=== PATIENT | male | born 1985 | race Caucasian/White ===

== ENCOUNTER 2019-01-21 08:35 | Outpatient (CLI) | payer MEDICARE, OTHER ==
--- NOTE | 2019-01-21 09:45 | RAD ---
LUMBOSACRAL SPINE THREE VIEWS: HISTORY: Right leg numbness for two years and lumbar radiculopathy. FINDINGS: Lateral views of the lumbosacral spine were performed in neutral, flexion, and extension. The verteb ral bodies and intervertebral disks demonstrate normal height and alignment without fracture or sublu xation. Alignment is unchanged with flexion and extension. No degenerative changes are seen. IMPRESSION: Unremarkable examination. POS: [facility]
--- NOTE | 2019-01-21 10:54 | MRI ---
LUMBAR SPINE MRI NONCONTRAST: Date: 01/21/19 INDICATION: Lumbar radiculopathy. Reference made to radiographs, same date. FINDINGS: No acute marrow edema. Degenerative T2 signal loss is present at L4-5 and L5-S1 intervertebral discs with associated posterior annular fissures. Conus medullaris is normal in morphology, terminating at the inferior L1 level. The imaged retroperitoneum reveals no significant pathology. L5-S1: Small right paracentral disc protrusion is present without significant, associated mass effec t. Neural foramina are patent. Slight effacement of ventral thecal sac. L4-5: Central zone annular fissure with slight posterior bulging disc flattens the ventral thecal sa c. No high grade foraminal stenosis bilaterally. At the L1-2, L2-3, and L3-4 levels, there is no significant central canal or neural foraminal comprom ise. 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 IMPRESSION: Disc degenerative changes at L4-5 and L5-S1, as discussed above. No significant, resultant central ca nal or neural foraminal stenosis. POS: [facility]
== END 2019-01-21 08:36 | disposition home or self-care (01) ==
LOC: TBSIIMAG 08:35
PROVIDERS: ATTEND Family Medicine
DX: M51.16 Intervertebral disc disorders with radiculopathy, lumbar region (principal); M51.37 Other intervertebral disc degeneration, lumbosacral region
CPT/HCPCS: 72100; 72148